=== PATIENT | male | born 1980 | race Caucasian/White ===

== ENCOUNTER 2022-02-05 14:57 | Emergency (ER) | payer OTHER, SELFPAY ==
[2022-02-05 15:07] VITALS: BP 123/70; PULSE 86; RESP 18; TEMP 36.7; O2SAT 97
--- NOTE | 2022-02-05 15:21 | ED.GENADULT ---
HPI - General Adult General Chief complaint: Ear Stated complaint: Bilateral Ear Irritation History of Present Illness HPI narrative: 41 y/o male. PMHx non-contributory. Presents to local [facility] today with acute request to have both of his ears cleaned out . Client tells me that he generally has to have his ears cleaned out at least once a year 2/2 cerumen accumulation. Describes 'muffled' hearing and sensation of bilateral ear 'fullness'. However w/o ear pain, discharge, or additional URI issues. He reports to be going to an upcoming [employer], and wants to be sure he will be able to hear the music good . He is without additional acute c/o upon PE. Related Data Allergies Allergy/AdvReac Type Severity Reaction Status Date / Time chocolate flavor Allergy Severe hives Verified 02/05/22 15:15 Review of Systems Review of Systems: CONSTITUTIONAL: Denies fever, chills, sweats. EYES: Denies visual changes, redness, discharge. ENT: Denies rhinorrhea, congestion, sore throat, otalgia. Fullness in both ears, wax accumulation. CARDIOVASCULAR: Denies chest pain, palpitations, edema. RESPIRATORY: Denies dyspnea, wheezing, cough GASTROINTESTINAL: Denies abdominal pain, nausea, vomiting, diarrhea. GENITOURINARY: Denies dysuria, hematuria, abnormal discharge SKIN: Denies rash or itching. MUSCULOSKELETAL: Denies acute back pain, joint pain, or myalgia. NEUROLOGIC: Denies numbness, or focal weakness. PSYCHIATRIC: Denies anxiety or depression. [facility] Social History Social History Smoking status: Never smoker Second hand tobacco smoke exposure: Yes Alcohol intake: former Substance use: former Substance use type: marijuana Exam Narrative: GENERAL: This is a well-nourished, well-developed adult, in no apparent distress. HEAD: normocephalic. EYES: Sclera clear/white. EARS: External ears normal. With a mild-moderate canal cerumen accumulation/obstruction. No erythema, no bleeding, no discharge, no signs of trauma. NOSE: External nose normal. THROAT: Mucous membranes moist. NECK: Neck supple. CARDIOVASCULAR: Regular rate and rhythm. RESPIRATORY: Clear to auscultation. NEURO: Alert, and age appropriate. Course Course Level of Care: Express Care Visit Vital Signs Vital signs: Vital Signs Temperature 36.7 C 02/05/22 15:07 Pulse Rate 86 02/05/22 15:07 Respiratory Rate 18 02/05/22 15:07 Blood Pressure 123/70 02/05/22 15:07 Pulse Oximetry 97 02/05/22 15:07 Oxygen Delivery Room Air 02/05/22 15:07 Temperature 36.7 C 02/05/22 15:07 Pulse Rate 86 02/05/22 15:07 Respiratory Rate 18 02/05/22 15:07 Blood Pressure 123/70 02/05/22 15:07 Pulse Oximetry 97 02/05/22 15:07 Oxygen Delivery Room Air 02/05/22 15:07 Procedures Ear Wax Removal Both Ears: Ear Wax Removal Date: 02/05/22 Ear Wax Removal Time: 15:30 Cerumenolytic Used: other (NS irrigaton, followed by manual Currette debridement. ) Results: Re-examined: cerumen removed completely TM Examination: TM(s) intact, normal appearance Ear Canal Exam: atraumatic and other (No bleeding or trauma. ) Patient Tolerated Procedure: well and no complications Technique: ear canal irrigated and ear canal curetted Medical Decision Making MDM Narrative Medical decision making narrative: -Bilateral ear cerumen impaction. -Manual irrigation, followed by lighted curette debridement was completed in clinic today. -Post procedure: Bilateral canals no longer obstructed and TMS are visualized, fully intact, no signs of infection. -Client reports immediate reliefs, no further muffled sensation and 'can hear a lot better'. -DC to home stable. -Carbamide Gtts as directed. -Additional home ear cleansing techniques have been reviewed. -PCP F/U PRN. Differential Diagnosis Differential Diagnosis: Dif
== END 2022-02-05 15:45 | disposition home or self-care (01) ==
PROVIDERS: Emergency Provider Nurse Practitioner Adult Health
DX: H61.23 Impacted cerumen, bilateral (principal)
CPT/HCPCS: 69210; 99213; G0463

== ENCOUNTER 2022-02-06 10:45 | Emergency (ER) | payer OTHER, SELFPAY ==
[2022-02-06 10:55] VITALS: BP 122/67; PULSE 82; RESP 18; TEMP 36.6; O2SAT 99
--- NOTE | 2022-02-06 12:00 | ED.EAR ---
HPI - Ear Problem General Chief complaint: Ear Stated complaint: Bilateral Ear Irritation Time Seen by Provider: 02/06/22 12:00 History of Present Illness HPI Narrative: Everardo Bowser is a 41 yo male with no PMH who comes with a recurrent problem with both ears. He was here yesterday and was irrigated and curetted for cerumen but he says today that he still cannot hear. Patient states he used water Debrox last night that was prescribed. He has a chronic earwax problem and wonders ears get clogged when he comes in to have it irrigated and we discussed going to an ENT for the flush and also using Debrox on a regular basis to prevent wax accumulation. He is very hard of hearing right now Related Data Allergies Allergy/AdvReac Type Severity Reaction Status Date / Time chocolate flavor Allergy Severe hives Verified 02/06/22 11:10 Review of Systems Review of Systems: CONSTITUTIONAL: Denies fever, chills, sweats. EYES: Denies visual changes, redness, discharge. ENT: Denies rhinorrhea, congestion, sore throat, otalgia. Cannot hear out of either ear CARDIOVASCULAR: Denies chest pain, palpitations, edema. RESPIRATORY: Denies dyspnea, wheezing, cough GASTROINTESTINAL: Denies abdominal pain, nausea, vomiting, diarrhea. GENITOURINARY: Denies dysuria, hematuria, abnormal discharge SKIN: Denies rash or itching. NEUROLOGIC: Denies numbness, or focal weakness. PSYCHIATRIC: Denies anxiety or depression. [facility] Social History Social History Smoking status: Never smoker Second hand tobacco smoke exposure: Yes Alcohol intake: former Substance use: former Substance use type: marijuana Comments At time of signature, I agree with nursing past medical, surgical, social and family history. There is no relevant family history pertinent to the presenting complaint. Exam Narrative: GENERAL: This is a well-nourished, well-developed patient, in mild distress. HEAD: normocephalic, atraumatic. EYES: Sclera clear/white. Vision is grossly intact. EARS: External ears normal, auditory canals erythematous and edematous and cannot visualize the TMs. Hearing grossly intact although is very difficult for him to hear right now NOSE: External nose normal without nasal discharge, nares without redness, no rhinorrhea. THROAT: Mucous membranes moist, posterior pharynx NECK: Neck supple, non-tender CARDIOVASCULAR: Regular rate and rhythm without murmurs, gallops, or rubs. RESPIRATORY: Clear to auscultation. Breath sounds equal bilaterally. No wheezes, rales, or rhonchi. GASTROINTESTINAL: Abdomen soft, non-tender, SKIN: warm, intact with no suspicious lesions or rash, good texture and turgor. NEURO: awake, alert, and oriented to person, place and time. There were no obvious focal neurologic abnormalities. Steady gait EXTREMITIES: Normal range of motion. BACK: Nontender without deformity Course Course Emergency Course: Patient was irrigated and curetted both ears yesterday for cerumen He is unable to hear now and he has bilateral swollen edematous canals Started on prednisone and eardrops as well as amoxicillin Level of Care: Express Care Visit Vital Signs Vital signs: Vital Signs Temperature 97.9 F 02/06/22 10:55 Pulse Rate 82 02/06/22 10:55 Respiratory Rate 18 02/06/22 10:55 Blood Pressure 122/67 02/06/22 10:55 Pulse Oximetry 99 02/06/22 10:55 Oxygen Delivery Room Air 02/06/22 10:55 Temperature 97.9 F 02/06/22 10:55 Pulse Rate 82 02/06/22 10:55 Respiratory Rate 18 02/06/22 10:55 Blood Pressure 122/67 02/06/22 10:55 Pulse Oximetry 99 02/06/22 10:55 Oxygen Delivery Room Air 02/06/22 10:55 Medical Decision Making Differential Diagnosis Differential Diagnosis: Cerumen versus infection versus complication of irrigation Vital Signs Vital Signs: Vital Signs Temperature 97.9 F 02/06/22 10:55 Pulse Rate 82 02/06/22 10:55 Respir
== END 2022-02-06 12:16 | disposition home or self-care (01) ==
PROVIDERS: Emergency Provider Nurse Practitioner
DX: H65.03 Acute serous otitis media, bilateral (principal)
CPT/HCPCS: 99213; G0463